=== PATIENT | female | born 1975 | race Caucasian/White ===

== ENCOUNTER 2023-07-09 13:43 | Outpatient (CLI) | payer OTHER, SELFPAY ==
--- OUTSIDE RECORDS SUMMARY | 2023-07-09 13:46 | XMS_ITS | Clinical Summary ---
Author Name Unknown Organization [facility] & [facility] Address [place], [place] [address] Care Team Providers Care Bridge Tender Name Role Phone Pcp, No Primary Care Provider Unavailabl e Allergies No known active allergies Medications Medication Sig Dispensed Refills Start Date End Date Status blood sugar diagnostic (GLUCOCARD VITAL SENSOR) stripIndications:Di abetes mellitus (HC) Dispense test strips covered by the patient insurance. Test 2 times per day. 100 Each 5 11/01/2012 Active omega-3 fatty acids-vitamin E (FISH OIL) 1,000 mg cap 2 caps twice daily 360 capsule 2 06/27/2013 Active gemfibrozil (LOPID) 600 mg tabletIndications:H ypertriglyceridemia TAKE 1 TABLET BY MOUTH DAILY 60 tablet 0 09/26/2013 Active ibuprofen (ADVIL; MOTRIN) 600 mg tabletIndications:B ack pain without radiation Take 1 tablet by mouth 4 times daily if needed. Maximum of 3200 mg in 24 hours. 60 tablet 1 03/31/2017 Active Active Problems Problem Noted Date Diagnosed Date Pancreatitis 10/31/2012 Hypertriglyceridemia 10/20/2012 Diabetes mellitus 10/20/2012 Myopia 06/01/2012 Resolved Problems Problem Noted Date Diagnosed Date Resolved Date Supervision of other normal 06/24/2007 06/01/2012 Immunizations Name Administration Dates Next Due Influenza A (H1N1), Inactivated 03/14/2009 Influenza A (H1N1), Inactivated (Age >=3 Years) 01/14/2010,01/14/2009 Influenza, IIV3 (Age >=3 years) 01/27/2013,07/10 Influenza, IIV4 (=>6mos) MDV 01/28/2016,02/02/20 14 Td (Age >=7 Years) 10/09/1998 Tdap 01/28/2016 Family History Medical History Relation Name Comments Diabetes Maternal Aunt several Diabetes Mother Diabetes Paternal Uncle several Cancer-breast No Family History Relation Name Status Comments Maternal Aunt Mother Paternal Uncle Social History Tobacco Use Types Packs/Day Years Used Date Smoking Tobacco: Never Smokeless Tobacco: Never Tobacco Cessation:Counseling Given: Yes Alcohol Use Standard Drinks/Week Comments No 0 (1 standard drink = 0.6 oz pur e alcohol) Sex and Gender Information Value Date Recorded Sex Assigned at Not on file Gender Identity Not on file Sexual Orientation Not on file Obstetrics History Para Term AB IAB SAB Ectopic Multiple Livin g Live Births 5 2 1 1 2 2 Date Outcome GA Total Labor Labor/2nd/3rd Weight Sex Delivery Anes PTL Carla A1 A5 Name Cl in SAB Para Para 03/16 40w 0d 22h 00m/ 3.97 kg (8 lb 12 oz) F Joselo Marysilvia Packer e 02/17 39w 0d 3h 00m/ 310 kg (683 lb 6.8 oz) M Vag Marysilvia garcia Last Filed Vital Signs Vital Sign Reading Time Taken Comments Blood Pressure 122/80 03/31/2017 11:03 AM PLANT GUARD Pulse 71 03/31/2017 11:03 AM PLANT GUARD Temperature 36.8 ??C (98.3 ??F) 03/31/2017 11:[address] Respiratory Rate - - Oxygen Saturation 100% 03/31/2017 11:03 AM PLANT GUARD Inhaled Oxygen Concentration - - Weight 70.6 kg (155 lb 9.6 oz) 03/31/2017 11:03 AM PLANT GUARD Height 157 cm (5' 1.81) 03/31/2017 11:03 AM PLANT GUARD Body Mass Index 28.63 03/31/2017 11:03 AM PLANT GUARD Plan of Treatment Health Maintenance Due Date Last Done Comments Hepatitis C screening for age 18-79 1992 Depression screening for age 12+ 10/27/2016 10/28/2015 BMI (ht and wt on same day) for age 18+ 03/31/2018 03/31/2017, 10/28/2015 Colonoscopy through age 75 07/20/2019 Lipids for age 45-75 09/08/2019 09/07/2014, 01/30/2014, 10/10/2013, Additional history exists Mammogram for age 45-75 11/08/2021 11/09/19 21, 03/31/2017, 01/10/2015 COVID-19 vaccine series (2022-24 season) 2022 Pap test for age 21-65 10/15/2023 , 10/14/2020, 03/31/2017, Additional history exists Influenza for age 9-49 12/05/2023 6, 02/01/2014, 01/27/2013, Additional history exists Tetanus booster 01/27/2026 01/28/2016, 10/09/1998 HIV for age 15-65 Completed 03/15/2007 Tdap Completed 01/28/2016 Pneumococcal series for age 6-64 Aged Out No longer eligible based on patient's age to complete this topic Procedures Procedure Name Priority Date/Time Associated Diagnosis Comments SCAN-MAMMOGRAPHY REPORT 11/08/2020 12:00 AM CDT ELECTRONIC ORGAN TECHNICIAN THIN PREP PAP DIAGNOSTIC IMAGED Routine 10/14/2020 11:45 AM CDT LIPID PANEL W REFLEX MEASURED LDL Routine 09/07/2014 7:24 AM CDT DM2 (diabetes mellitus, type 2) Elevated lipids ANTI HIV 1/2 Routine 03/15/2007 2:16 PM PLANT GUARD Supervision Of Other Normal from Last 3 Months or Most Recently Relevant to Health Maintenance Results * SCAN-MAMMOGRAPHY REPORT (11/08/2020 12:00 AM CDT) Anatomical Region Laterality Modality Other Scanner OTHER * ELECTRONIC ORGAN TECHNICIAN THIN PREP PAP DIAGNOSTIC IMAGED (10/14/2020 11:45 AM CDT) Case Report Gynecologic Cytology Report ? Case: [id number] ? Authorizing Provider: ??Stacy Cruz, TAMMY, ?? Collected: ? 10/14/2020 1145 ? CRIMINAL DEFENSE LAWYER ? Ordering Location: ? [facility] ?Received: ?10/16/2020 1129 ? First Screen: ?Lynn Gaston ? Specimen: ?ELECTRONIC ORGAN TECHNICIAN ThinPrep Vial Diagnostic, Cervical ? 10/27/2020 12:16 PM CDT [facility] INTERPRETATION/ RESULT NEGATIVE FOR INTRAEPITHELIAL LESION OR MALIGNANCY (NIL) (none) 10/27/2020 12:16 PM CDT [facility] IMEN ADEQUACY Satisfactory for evaluation Endocervical component present 10/27/2020 12:16 PM CDT [facility] HPV REQUEST HPV and PAP 10/27/2020 12:16 PM CDT [facility] Last Pap Result First Pap/Unknown 12:16 PM CDT [facility] Brashear Bx Done Today No 10/27/2020 12:16 PM CDT [facility] Additional Information 10/27/2020 12:16 PM CDT [facility] Comment: Interpreted at [facility] - [address], [place] [address] Automated Review Successful 10/27/2020 12:16 PM CDT [facility] Comment:Specimen processed s uccessfully by automated trashman device, ThinPrep Imaging System, [employer] ANCILLARY TESTING ELECTRONIC ORGAN TECHNICIAN HPV Ordered, Please see separate report 10/27/2020 12:16 PM CDT [facility] Note The pap test is a screening technique, not a diagnostic procedure. It is used primarily to screen for squamous cancers and precursor lesions. Published studies have shown that it is subject to both false negative and false positive results. The pap test should not be used as the sole means to diagnose or exclude pre-malignant and malignant lesions. 10/27/2020 12:16 PM CDT [facility] Other (Cervical) 10/14/2020 11:45 AM CDT 10/16/2020 11:29 AM CDT Stacy Cruz RN, CRIMINAL DEFENSE LAWYER PATHOLOGY/CYT OLOGY [facility] [address] [place] [address], * (ABNORMAL) LIPID PANEL W REFLEX MEASURED LDL (09/07/2014 7:24 AM CDT) CHOLESTEROL,TOTAL 222(H) 100 - 199 mg/dL 09/07/2014 8:11 AM CDT [facility] TRIGLYCERIDES 138 <150 mg/dL 09/07/2014 8:11 AM CDT [facility] HDL CHOLESTEROL 49 >40 mg/dL 5 8:11 AM CDT [facility] NON-HDL CHOLESTEROL 173(H) <145 mg/dl 09/07/2014 8:11 AM CDT [facility] CHOL/HDL RATIO 4.53(H) <4.50 09/07/2014 8:11 AM CDT [facility] LDL CHOLESTEROL 145(H) <=130 mg/dL 09/07/2014 8:11 AM CDT [facility] PATIENT STATUS FASTING 09/07/2014 8:11 AM CDT [facility] Blood specimen (specimen) BLOOD SPECIMEN / Unknown Venipuncture / Unknown 09/07/2014 7:24 AM CDT 09/07/2014 7:24 AM CDT Chito Gerber MD CHEMISTRY [facility] [address] [place] [address], * ANTI HIV 1/2 (03/15/2007 2:16 PM PLANT GUARD) ANTI HIV 1/2 Non-reacti ve [facility] Blood specimen (specimen) BLOOD SPECIMEN / Unknown 03/15/2007 2:16 PM PLANT GUARD 03/15/2007 2:05 PM PLANT GUARD Erica Monroe NP SEND OUTS [facility] INTERNAL ZIP [address] [place] [id number] from Last 3 Months or Most Recently Relevant to Health Maintenance Care Teams Bridge Tender Relationship Specialty Start Date End Date Pcp, No . PCP - General 08/26/20
--- NOTE | 2023-07-09 14:00 | MM_ITS ---
Patient: NICOLE FERRER Facility:?[facility] Patient ID:?[id number] Site Patient ID:?[id number]. Site :?[id number] Study:?XRay-Breast Bilateral 3D w/CAD-07/09/2023 3:02:28 PM Ordering Physician:Mariana Final Report: BILATERAL SCREENING MAMMOGRAM WITH COMPUTER-AIDED DETECTION AND TOMOSYNTHESIS TECHNIQUE: CC and MLO views were obtained. These mammographic images have been obtained using full-field digital technique. These mammographic images were interpreted with the benefit of computer-aided detection. Breast Tomosynthesis was used in this interpretation. COMPARISON FILM: 11/08/2020, 03/31/2017, 01/10/2015. FINDINGS: There are scattered areas of fibroglandular density. IMPRESSION: There is no radiographic evidence for malignancy. ASSESSMENT: BI-RADS Category 1: Negative RECOMMENDATION: Routine screening mammogram in 1 year. A lay language report of this examination will be provided to the patient. Chito Cristina M.D. Diagnostic Radiologist [employer] [facility] [email or web address] DSM/sp R& Transcribed: 12:04 p.m. SP/Dictated by: Chito Cristina MD @ 07/12/2023 9:54:00 AM Signed by:?Chito Cristina MD @07/12/2023 12:12:25 PM (Electronic Signature)
== END 2023-07-09 13:44 | disposition home or self-care (01) ==
LOC: MAMMO 13:44
PROVIDERS: Visit Provider Advanced Practice Midwife
DX: Z12.31 Encounter for screening mammogram for malignant neoplasm of breast (principal)
CPT/HCPCS: 77063; 77067; T1013

== ENCOUNTER 2023-07-10 12:27 | Outpatient (CLI) | payer OTHER, SELFPAY ==
--- OUTSIDE RECORDS SUMMARY | 2023-07-11 23:36 | XMS_ITS | Clinical Summary ---
Author Name Unknown Organization [facility] Address [place], [place] [address] Care Team Providers Care Track Patrol Name Role Phone Pcp, No Primary Care [...] Comments Blood Pressure 122/80 03/31/2017 11:03 AM PERSONNEL SCHEDULER Pulse 71 03/31/2017 11:03 AM PERSONNEL SCHEDULER Temperature 36.8 ??C (98.3 ??F) 03/31/2017 11:[address] Respiratory Rate - - Oxygen Saturation 100% 03/31/2017 11:03 AM PERSONNEL SCHEDULER Inhaled Oxygen Concentration - - Weight 70.6 kg (155 lb 9.6 oz) 03/31/2017 11:03 AM PERSONNEL SCHEDULER Height 157 cm (5' 1.81) 03/31/2017 11:03 AM PERSONNEL SCHEDULER Body Mass Index 28.63 03/31/2017 11:03 AM PERSONNEL SCHEDULER Plan of Treatment Health Maintenance Due Date [...] Comments SCAN-MAMMOGRAPHY REPORT 11/08/2020 12:00 AM CDT ELECTRICIAN JOURNEYMAN WIREMAN THIN PREP PAP DIAGNOSTIC IMAGED Routine 10/14/2020 11:45 AM CDT LIPID PANEL W REFLEX MEASURED LDL Routine 09/07/2014 7:24 AM CDT DM2 (diabetes mellitus, type 2) Elevated lipids ANTI HIV 1/2 Routine 03/15/2007 2:16 PM PERSONNEL SCHEDULER Supervision Of Other Normal from Last 3 Months or Most Recently Relevant to Health Maintenance Results * SCAN-MAMMOGRAPHY REPORT (11/08/2020 12:00 AM CDT) Anatomical Region Laterality Modality Other Scanner OTHER * ELECTRICIAN JOURNEYMAN WIREMAN THIN PREP PAP DIAGNOSTIC IMAGED (10/14/2020 11:45 AM CDT) Case Report Gynecologic Cytology Report ? Case: [id number] ? Authorizing Provider: ??Stacy Cruz, TAMMY, ?? Collected: ? 10/14/2020 1145 ? INSTRUMENT AND CONTROL SERVICE PERSON ? Ordering Location: ? [facility] ?Received: ?10/16/2020 1129 ? First Screen: ?Lynn Gaston ? Specimen: ?ELECTRICIAN JOURNEYMAN WIREMAN ThinPrep Vial Diagnostic, Cervical ? 10/27/2020 12:16 PM CDT [facility] INTERPRETATION/ RESULT NEGATIVE FOR INTRAEPITHELIAL LESION OR MALIGNANCY (NIL) (none) 10/27/2020 12:16 PM CDT [facility] IMEN ADEQUACY Satisfactory for evaluation Endocervical component present 10/27/2020 12:16 PM CDT [facility] HPV REQUEST HPV and PAP 10/27/2020 12:16 PM CDT [facility] Last Pap Result First Pap/Unknown 12:16 PM CDT [facility] Patterson Bx Done Today No 10/27/2020 12:16 PM CDT [facility] Additional Information 10/27/2020 12:16 PM CDT [facility] Comment: Interpreted at [facility] - [address], [place] [address] Automated Review Successful 10/27/2020 12:16 PM CDT [facility] Comment:Specimen processed s uccessfully by automated earth science teacher device, ThinPrep Imaging System, [employer] ANCILLARY TESTING ELECTRICIAN JOURNEYMAN WIREMAN HPV Ordered, Please see separate report 10/27/2020 12:16 PM CDT [facility] Note The pap test is a [...] and malignant lesions. 10/27/2020 12:16 PM CDT [facility] Other (Cervical) 10/14/2020 11:45 AM CDT 10/16/2020 11:29 AM CDT Stacy Cruz RN, INSTRUMENT AND CONTROL SERVICE PERSON PATHOLOGY/CYT OLOGY [facility] [address] [place] [address], * (ABNORMAL) LIPID PANEL W REFLEX MEASURED LDL (09/07/2014 7:24 AM CDT) CHOLESTEROL,TOTAL 222(H) 100 - 199 mg/dL 09/07/2014 8:11 AM CDT [facility] TRIGLYCERIDES 138 <150 mg/dL 09/07/2014 8:11 AM CDT [facility] HDL CHOLESTEROL 49 >40 mg/dL 5 8:11 AM CDT [facility] NON-HDL CHOLESTEROL 173(H) <145 mg/dl 09/07/2014 8:11 AM CDT [facility] CHOL/HDL RATIO 4.53(H) <4.50 09/07/2014 8:11 AM CDT [facility] LDL CHOLESTEROL 145(H) <=130 mg/dL 09/07/2014 8:11 AM CDT [facility] PATIENT STATUS FASTING 09/07/2014 8:11 AM CDT [facility] Blood specimen (specimen) BLOOD SPECIMEN / Unknown Venipuncture / Unknown 09/07/2014 7:24 AM CDT 09/07/2014 7:24 AM CDT Chito Gerber MD CHEMISTRY [facility] [address] [place] [address], * ANTI HIV 1/2 (03/15/2007 2:16 PM PERSONNEL SCHEDULER) ANTI HIV 1/2 Non-reacti ve [facility] Blood specimen (specimen) BLOOD SPECIMEN / Unknown 03/15/2007 2:16 PM PERSONNEL SCHEDULER 03/15/2007 2:05 PM PERSONNEL SCHEDULER Erica Monroe NP SEND OUTS [facility] INTERNAL ZIP [address] [place] [phone] from Last 3 Months or Most Recently Relevant to Health Maintenance Care Teams Track Patrol Relationship Specialty Start Date End Date Pcp, No . PCP - General 08/26/20
--- OUTSIDE RECORDS SUMMARY | 2023-07-11 23:37 | XMS_ITS | Data Portability ---
Author Name Unknown Address [address] [place] [id number] Phone [phone] Organization [facility] Mya nair [place] [facility] Address [address] [place] [address] [place] [address] Assessment Encounter Date Assessment Date Assessment LastModified by Organization Details LastModified Time 10/14/2020 10/14/2020 Follow-up with Dr. Bejarano as scheduled. [email or web address] Not available 10/14/2020 12:04:32 03/18/2023 03/18/2023 - refilled medications - discussed insulin, patient defers for now as she believes she can bring down A1C with diet - recheck 3-6 months, plan pending [id number] Not available 03/18/2023 16:29:17 Plan of Treatment Reminders Order Date Submit Date Provider Last Modified By Organization Details Last Modified Time Details Appointments None recorded. Lab CBC w/ auto diff [address]- Lab, [address] [place], [address], 16:30:42 HbA1c (hemoglobi n A1c), blood [address]- Lab, [address] [place], [address], 16:30:42 BMP, serum or plasma [address]- Lab, [address] [place], [address], 16:30:42 urinalysis , complete [address] [facility]- Lab, [address] [place], [address], 20:53:[address] [facility] Lab, [address] [place], [address], 16:29:54 CMP, serum or plasma [address] [facility], [address] [place], [address], 16:29:54 lipid panel, serum [address] [facility], [address] [place], [address], 16:29:54 microalbum in/creatin ine, mass ratio, urine [address] [facility], [address] [place], [address], 2 16:29:54 fecal occult blood, immunoassa y, stool [address] [facility] Lab, [address] [place], [address], 14:33:53 HbA1c (hemoglobi n A1c), blood [address] [facility], [address] [place], [address], 12:24:35 CBC w/ auto diff 2020 021 [facility], [address] [place] [address], [address], 20:41:48 CMP, serum or plasma 2020 021 [facility], [address] [place] [address], [phone], 2 20:42:14 lipid panel, blood 2020 021 meng [facility], [address] [place] [address], [address], 2 20:42:03 pap, LB + HR HPV - LMP 10/06/112020 021 [facility], [address] [place] [address], [address], 1 11:38:22 CBC w/ auto diff 2020 021 [facility] Not available 10:14:44 CMP, serum or plasma 2020 021 [facility] Not available 1 10:16:36 lipid panel, serum 2020 021 [facility] Not available 1 10:16:36 HbA1c (hemoglobi n A1c), blood 2020 021 [facility], [address] [place] [address], [address], 1 10:15:48 microalbum in/creatin ine, mass ratio, urine 2020 021 [facility], [address] [place] [address], [address], 1 10:17:19 Referral None recorded. Procedures None recorded. Surgeries None recorded. Imaging MAMMO, screening, bilateral 2020 021 [facility] Not available 1 14:55:08 Medication Orders metformin 500 mg tablet 2022 023 [facility], [address] [place], [address], 3 16:29:47 glipizide 10 mg tablet 2022 023 [facility], [address] [place], [address], 4 17:35:32 lisinopril 10 mg tablet 2022 023 [facility], [address] [place], [address], 3 16:29:03 rosuvastat in 5 mg tablet 2022 023 [facility], [address] [place], [address], 3 16:29:17 metformin 500 mg tablet 2021 022 [facility], [address] [place], [address], 2 12:42:48 gemfibrozi l 600 mg tablet [email or web address] [place] [address], [address] [place], [address], 3 14:56:20 metformin 500 mg tablet 2021 022 [facility], [address] [place], [address], 2 18:55:29 glipizide 10 mg tablet 2021 022 [facility], [address] [place], [address], 2 18:55:28 Fish Oil 340 mg-1,000 mg capsule 2021 022 [email or web address] [facility], [address] [place], [address], 2 19:24:46 glipizide 10 mg tablet 2020 021 [email or web address], [address], 3 11:23:01 metformin 500 mg tablet [address], [address], 1 18:41:21 gemfibrozi l 600 mg tablet [address], [address], 3 14:56:20 Fish Oil 340 mg-1,000 mg capsule 2020 [email or web address], [address], 2 19:24:46 Fish Oil 1,000 mg (120 mg-180 mg) capsule 2020 [email or web address], [address], 1 11:54:24 gemfibrozi l 600 mg tablet [email or web address], [address], 3 14:56:20 metformin 500 mg tablet [address], [address], 1 11:48:10 penicillin V potassium 500 mg tablet 2019 020 [email or web address] Not available 2 14:40:19 Patient TargetsNo targets recorded. Patient Instructions Encounter Date Encounter Id Patient Instructions Last Modified By Organization Details Last Modified Time 02/24/2022 [id number] watch for diarrhea, try to loose weight [email or web address] Not available 02/25/2022 10:04:56 check BS next visit, needs MARK ANTHONY, optometry report from Mark[facility], call about UA [email or web address] Not available 02/25/2022 10:07:19 10/21/2021 [id number] be sure to eat breakfast for energy during the day, [email or web address] Not available 10/22/2021 11:55:49 review lab, meds , start ASA next visit [email or web address] Not available 10/22/2021 12:02:41 02/06/2021 [id number] May take Ibuprofen or Tylenolprn. Use ice to arm prn. [email or web address] Not available 02/06/2021 18:19:12 01/21/2021 [id number] consider flu shot [email or web address] Not availab le 01/21/2021 20:37:55 10/14/2020 [id number] aprenda acerca d e las pruebas de detecci??n del c??ncer de seno - [learning about breast cancer screening] [email or web address] Not available 10/14/2020 11:50:17 08/20/2020 [id number] needs in person if not improved [email or web address] Not available 08/21/2020 11:31:46 10/12/2019 814 If anyone else i n family gets bad sore throat, belly pain, or fever, please call clinic to consider Rapid Strip testing for them. [email or web address] Not available 10/12/2019 19:07:49 Reason for Referral None Reported. Results Created Date Observation Date Name Description Value Unit Range Abnormal Flag LastModifiedBy Organization Detail LastModifiedTime 11/09/19 21 11/08/2020 lipid panel , serum ALT 18 Not Available Not Available 11/03 10:16:36 11/09/19 21 11/08/2020 lipid panel , serum creatinine 0.6 Not Available Not Available 0 11/12/2020 10:16:36 11/09/19 21 11/08/2020 lipid panel , serum HDL 53 Not Available Not Available 11/03 10:16:36 11/09/19 21 11/08/2020 lipid panel , serum LDL 80 Not Available Not Available 11/03 10:16:36 11/09/19 21 11/08/2020 lipid panel , serum total 233 Not Available Not Available 11/03 10:16:36 11/09/19 21 11/08/2020 lipid panel , serum trigliceride s 499 Not Available Not Available 10:16:36 11/09/19 21 11/08/2020 CMP, serum or plasm a ALT 18 Not Available Not Available 09/2020 17:08:35 11/09/19 21 11/08/2020 CMP, serum or plasm a creatinine 0.6 Not Available Not Available 0 11/08/2020 17:08:35 11/09/19 21 11/08/2020 CMP, serum or plasm a HDL 53 Not Available Not Available 09/2020 17:08:35 11/09/19 21 11/08/2020 CMP, serum or plasm a LDL 80 Not Available Not Available 09/2020 17:08:35 11/09/19 21 11/08/2020 CMP, serum or plasm a total 233 Not Available Not Available 09/2020 17:08:35 11/09/19 21 11/08/2020 CMP, serum or plasm a trigliceride s 499 Not Available Not Available 17:08:35 11/09/19 21 11/08/2020 micro album in/cr eatin ine, mass ratio , urine microalblumi n <1 Not Available [address], [address], 11/08/2020 17:12:40 11/09/19 21 11/08/2020 micro album in/cr eatin ine, mass ratio , urine ur creatinine 64 Not Available [address], [address], 11/08/2020 17:12:40 11/09/19 21 11/08/2020 HbA1c (hemo globi n A1c), blood A1C 10.2 Not Available [address], [address], 11/08/2020 17:01:38 11/09/19 21 11/08/2020 CBC w/ auto diff WBC 5.95 Not Available Not Available 09/2020 16:58:41 11/09/19 21 11/08/2020 CBC w/ auto diff platelet count 124 Not Available Not Available 16:58:41 11/09/19 21 11/08/2020 CBC w/ auto diff HGB 12.6 Not Available Not Available 09/2020 16:58:41 02/19/20 22 02/18/2022 HbA1c (hemo globi n A1c), blood hemoglobin A1C 10.57 high Not Available [facility] [address] [place], [address], 02/18/2022 21:18:19 02/19/20 22 02/18/2022 lipid panel , serum white blood count 5.57 Not Available [facility] [address] [place], [address], 02/24/2022 16:29:54 02/19/20 22 02/18/2022 lipid panel , serum hemoglobin 13.0 Not Available [facility] [address] [place], [address], 02/24/2022 16:29:54 02/19/20 22 02/18/2022 lipid panel , serum platelet count 102 low Not Available [facility] [address] [place], [address], 02/24/2022 16:29:54 02/19/20 22 02/18/2022 lipid panel , serum creatinine 0.5 Not Available [facility] [address] [place], [address], 02/24/2022 16:29:54 02/19/20 22 02/18/2022 lipid panel , serum ALT 25 Not Available [facility]- Lab [address] [place], [address], 02/24/2022 16:29:54 02/19/20 22 02/18/2022 lipid panel , serum hemoglobin A1C 10.57 high Not Available [facility] Lab [address] [place], [address], 02/24/2022 16:29:54 02/19/20 22 02/18/2022 lipid panel , serum micro ratio 10 Not Available [facility]- Lab [address] [place], [address], 02/24/2022 16:29:54 02/19/20 22 02/18/2022 lipid panel , serum cholesterol 234 high Not Available [facility] [address] [place], [address], 02/24/2022 16:29:54 02/19/20 22 02/18/2022 lipid panel , serum triglyceride s 435 high Not Available [facility] [address] [place], [address], 02/24/2022 16:29:54 02/19/20 22 02/18/2022 lipid panel , serum HDL 49 low Not Available [facility]- Lab [address] [place], [address], 02/24/2022 16:29:54 02/19/20 22 02/18/2022 lipid panel , serum LDL 98 Not Available [facility] [address] [place], [address], 02/24/2022 16:29:54 02/19/20 22 02/18/2022 micro album in/cr eatin ine, mass ratio , urine white blood count 5.57 Not Available [facility] [address] [place], [address], 02/24/2022 16:29:54 02/19/20 22 02/18/2022 micro album in/cr eatin ine, mass ratio , urine hemoglobin 13.0 Not Available [facility]- Lab [address] [place], [address], 02/24/2022 16:29:54 02/19/20 22 02/18/2022 micro album in/cr eatin ine, mass ratio , urine platelet count 102 low Not Available [facility] [address] [place], [address], 02/24/2022 16:29:54 02/19/20 22 02/18/2022 micro album in/cr eatin ine, mass ratio , urine creatinine 0.5 Not Available [facility] [address] [place], [address], 02/24/2022 16:29:54 02/19/20 22 02/18/2022 micro album in/cr eatin ine, mass ratio , urine ALT 25 Not Available [facility]- Lab [address] [place], [address], 02/24/2022 16:29:54 02/19/20 22 02/18/2022 micro album in/cr eatin ine, mass ratio , urine hemoglobin A1C 10.57 high Not Available [facility] [address] [place], [address], 02/24/2022 16:29:54 02/19/20 22 02/18/2022 micro album in/cr eatin ine, mass ratio , urine micro ratio 10 Not Available [facility] [address] [place], [address], 02/24/2022 16:29:54 02/19/20 22 02/18/2022 micro album in/cr eatin ine, mass ratio , urine cholesterol 234 high Not Available [facility] [address] [place], [address], 02/24/2022 16:29:54 02/19/20 22 02/18/2022 micro album in/cr eatin ine, mass ratio , urine triglyceride s 435 high Not Available [facility] [address] [place], [address], 02/24/2022 16:29:54 02/19/20 22 02/18/2022 micro album in/cr eatin ine, mass ratio , urine HDL 49 low Not Available [facility] [address] [place], [address], 02/24/2022 16:29:54 02/19/20 22 02/18/2022 micro album in/cr eatin ine, mass ratio , urine LDL 98 Not Available [facility] [address] [place], [address], 02/24/2022 16:29:54 02/19/20 22 02/18/2022 HbA1c (hemo globi n A1c), blood white blood count 5.57 Not Available [facility] [address] [place], [address], 02/24/2022 16:29:54 02/19/20 22 02/18/2022 HbA1c (hemo globi n A1c), blood hemoglobin 13.0 Not Available [facility] [address] [place], [address], 02/24/2022 16:29:54 02/19/20 22 02/18/2022 HbA1c (hemo globi n A1c), blood platelet count 102 low Not Available [facility] [address] [place], [address], 02/24/2022 16:29:54 02/19/20 22 02/18/2022 HbA1c (hemo globi n A1c), blood creatinine 0.5 Not Available [facility] [address] [place], [address], 02/24/2022 16:29:54 02/19/20 22 02/18/2022 HbA1c (hemo globi n A1c), blood ALT 25 Not Available [facility] [address] [place], [address], 02/24/2022 16:29:54 02/19/20 22 02/18/2022 HbA1c (hemo globi n A1c), blood hemoglobin A1C 10.57 high Not Available [facility] [address] [place], [address], 02/24/2022 16:29:54 02/19/20 22 02/18/2022 HbA1c (hemo globi n A1c), blood micro ratio 10 Not Available [facility]- Lab [address] [place], [address], 02/24/2022 16:29:54 02/19/20 22 02/18/2022 HbA1c (hemo globi n A1c), blood cholesterol 234 high Not Available [facility] [address] [place], [address], 02/24/2022 16:29:54 02/19/20 22 02/18/2022 HbA1c (hemo globi n A1c), blood triglyceride s 435 high Not Available [facility] [address] [place], [address], 02/24/2022 16:29:54 02/19/20 22 02/18/2022 HbA1c (hemo globi n A1c), blood HDL 49 low Not Available [facility] [address] [place], [address], 02/24/2022 16:29:54 02/19/20 22 02/18/2022 HbA1c (hemo globi n A1c), blood LDL 98 Not Available [facility] [address] [place], [address], 02/24/2022 16:29:54 02/19/20 22 02/18/2022 CMP, serum or plasm a white blood count 5.57 Not Available [facility] [address] [place], [address], 02/24/2022 16:29:54 02/19/20 22 02/18/2022 CMP, serum or plasm a hemoglobin 13.0 Not Available [facility] [address] [place], [address], 02/24/2022 16:29:54 02/19/2002/18/2022 CMP, serum or plasm a platelet count 102 low Not Available [facility] [address] [place], [address], 02/24/2022 16:29:54 02/19/2002/18/2022 CMP, serum or plasm a creatinine 0.5 Not Available [facility] [address] [place], [address], 02/24/2022 16:29:54 02/19/2002/18/2022 CMP, serum or plasm a ALT 25 Not Available [facility] [address] [place], [address], 02/24/2022 16:29:54 02/19/20 22 02/18/2022 CMP, serum or plasm a hemoglobin A1C 10.57 high Not Available [facility] [address] [place], [address], 02/24/2022 16:29:54 02/19/20 22 02/18/2022 CMP, serum or plasm a micro ratio 10 Not Available [facility] [address] [place], [address], 02/24/2022 16:29:54 02/19/2002/18/2022 CMP, serum or plasm a cholesterol 234 high Not Available [facility] [address] [place], [address], 02/24/2022 16:29:54 02/19/2002/18/2022 CMP, serum or plasm a triglyceride s 435 high Not Available [facility] [address] [place], [address], 02/24/2022 16:29:54 02/19/2002/18/2022 CMP, serum or plasm a HDL 49 low Not Available [facility] [address] [place], [address], 02/24/2022 16:29:54 02/19/20 22 02/18/2022 CMP, serum or plasm a LDL 98 Not Available [facility] [address] [place], [address], 02/24/2022 16:29:54 02/19/20 22 02/18/2022 CBC white blood count 5.57 Not Available [facility] [address] [place], [address], 02/24/2022 14:44:35 02/19/20 22 02/18/2022 CBC hemoglobin 13.0 Not Availa ble [facility] [address] [place], [address], 02/24/2022 14:44:35 02/19/20 22 02/18/2022 CBC platelet count 102 low Not Available [facility] [address] [place], [address], 02/24/2022 14:44:35 02/19/20 22 02/18/2022 CBC creatinine 0.5 Not Availa ble [facility] [address] [place], [address], 02/24/2022 14:44:35 02/19/20 22 02/18/2022 CBC ALT 25 Not Available [facility] [address] [place], [address], 02/24/2022 14:44:35 02/19/20 22 02/18/2022 CBC hemoglobin A1C 10.57 high Not Available [facility] [address] [place], [address], 02/24/2022 14:44:35 02/19/20 22 02/18/2022 CBC micro ratio 10 Not Avail able [facility] [address] [place], [address], 02/24/2022 14:44:35 02/19/20 22 02/18/2022 CBC cholesterol 234 high Not Avail able [facility] [address] [place], [address], 02/24/2022 14:44:35 02/19/20 22 02/18/2022 CBC triglyceride s 435 high Not Available [facility] [address] [place], [address], 02/24/2022 14:44:35 02/19/20 22 02/18/2022 CBC HDL 49 low Not Available [facility] [address] [place], [address], 02/24/2022 14:44:35 02/19/20 22 02/18/2022 CBC LDL 98 Not Available [facility] [address] [place], [address], 02/24/2022 14:44:35 02/11/20 21 11/08/2020 MAMMO , scree aleksandra, bilat eral No observ ation record ed. [facility] Radiology Department [address] [place], [address], 09/02/2021 20:55:36 Result Notes None recorded. Problems Name Status Onset Date Resolution Date Notes Provider Name and Address Organization Details Recorded Time Type 2 diabetes mellitus Active 10/15/19 21 Tommy Bejarano MD [address] [place], [address] , [facility] 10/21/2021 18:28:35 Hyperlipidemia Active 10/15/19 21 Tommy Bejarano MD [address] [facility] [place], [address] , [facility] 10/21/2021 18:28:40 History of pancreatitis Active 10/15/19 21 Stacy Cruz NP [address] [place], [address] , [facility] 10/14/2020 11:55:59 History of SARS-CoV-2 Active 10/15/19 Stacy Cruz NP [address] [place], [address] , [facility] 10/14/2020 11:57:26 Notes:Problem: Type 2 diabet es mellitus Status: Chronic Problem: Hyperlipidemia Status: Chronic Problem: Pancreatitis Status: Non-Chronic Problem Notes None recorded. Procedures Surgical History Date Name Laterality Status Provider Name and Address Organization Details Recorded Time 0 Date of Last Mammogram completed Stacy Cruz NP [address] [place], [address], [facility] 10/14/2020 11:55:12 6 Date of Last Pap Smear completed Stacy Cruz NP [address] [place], [address], [facility] 10/14/2020 11:55:02 Imaging Results Imaging Date Name Status LastModified by Organiz ation Details LastModified Time 11/08/2020 MAMMO, screening, bilateral completed [facility] Radiology Department [address] [place], [address], 09/02/2021 20:55:36 Procedure Notes None recorded. Medical Equipment None Reported. Allergies No known drug allergies Medications Name Sig Start Date Stop Date Status Note LastModified by Organization Details LastModified Time gnp eye drop dry eye INSTILL 1 DROP INTO AFFECTED EYE(S) TWICE A DAY NEEDED 10/21 completed Not Available Not Available Not Available penicillin V potassium 250 mg tablet Take 1 tablet every 6 hours by oral route. 10/19 completed Not Available Not Available Not Available cyclobenzap rine 10 mg tablet take 1 tablet by oral route 2 times every day 01/17 completed Not Available Not Available Not Available metformin 500 mg tablet TAKE TWO TABLETS BY MOUTH TWICE A DAY active Not Available Not Available No t Available azithromyci n 250 mg tablet TAKE 2 TABLETS BY MOUTH TODAY THEN 1 TABLET DAILY FOR 4 DAYS 03/18 completed Not Available Not Available Not Available Lidocaine Viscous 2 % mucosal solution MIX 5CCS OF LIDOCAINE WITH 10CCS OF WATER AND GARGLE EVERY THREE HOURS 09/11 completed Not Available Not Available Not Available glipizide 10 mg tablet TAKE ONE TABLET BY MOUTH EVERY DAY 2022 active Not Available Not Available Not Avai lable penicillin V potassium 500 mg tablet TAKE ONE-HALF TABLET (250MG) BY MOUTH EVERY SIX HOURS 10/19 completed Not Available Not Available Not Available meclizine 12.5 mg tablet take 2 tablet by oral route 3 times every day as needed 05/30 completed Not Available Not Available Not Available gemfibrozil 600 mg tablet TAKE ONE TABLET BY MOUTH ONCE DAILY 03/18 completed Not Available Not Available Not Available lisinopril 10 mg tablet TAKE ONE TABLET BY MOUTH EVERY DAY active Not Available Not Available No t Available ergocalcife rol (vitamin D2) 1,250 mcg (50,000 unit) capsule take 1 capsule by oral route every week for 8 weeks 10/28 completed Not Available Not Available Not Available ibuprofen 600 mg tablet take 1 tablet by oral route 3 times every day as needed 10/14 completed Not Available Not Available Not Available rosuvastati n 5 mg tablet TAKE ONE TABLET BY MOUTH EVERY DAY active Not Available Not Available No t Available Fish Oil 340 mg-1,000 mg capsule TAKE 1 OR 2 CAPSULES TWICE DAILY. 02/24 completed Not Available Not Available Not Available Artificial Tears (glycerin-p eg) 1 %-0.3 % eye drops Apply 1 drop twice a day by ophthalmi c route as needed. 10/21 completed Not Available Not Available Not Available Gildess FE 1.5/30 (28) 1.5 mg-30 mcg (21)/75 mg (7) tablet take 1 tablet by oral route every day 01/17 completed Not Available Not Available Not Available Vitamin D3 125 mcg (5,000 unit) tablet take 1 by Oral route every day 05/30 completed Not Available Not Available Not Available Fish Oil 1,000 mg (120 mg-180 mg) capsule Take 1 or 2 capsules twice daily. 10/14 completed Not Available Not Available Not Available omega-3 300 mg-dha 120 mg-epa 180 mg-fish oil 1,000 mg capsule TAKE 1 OR 2 CAPSULES TWICE DAILY. active Not Available Not Available No t Available Vitals Date Recorded Body weight Systolic blood pressure Diastolic blood pressure Provider Name and Address Organization Details Last Updated DateTime 09/10/2020 49129.13 g 126 mm[Hg] 75 mm[Hg] Tommy Bejarano MD [address] [place], [address], [facility] [employer] 09/11/2020 11:40:06 Date Recorded Body height Body mass index (BMI) Body weight Heart rate Body temperature Systolic blood pressure Diastolic blood pressure Provider Name and Address Organization Details Last Updated DateTime 1 152.4 cm 30.3 kg/m2 75319.8 2 g 73 /min 98.7 [degF] 126 mm[Hg] 78 mm[Hg] Stacy Cruz NP [address] [place], [address], [facility] [employer] 1 11:54:14 Date Recorded Body height Body mass index (BMI) Body weight Systolic blood pressure Diastolic blood pressure Provider Name and Address Organization Details Last Updated DateTime 01/21/2021 160.02 cm 28 kg/m2 21426.59 g 125 mm[Hg] 79 mm[Hg] Tommy Bejarano MD [address] [place], [address], [facility] [employer] 1 19:56:42 Date Recorded Body height Body mass index (BMI) Body weight Heart rate Systolic blood pressure Diastolic blood pressure Provider Name and Address Organization Details Last Updated DateTime 2 157.48 cm 28.3 kg/m2 65221.8 2 g 79 /min 141 mm[Hg] 84 mm[Hg] [place] [facility] [employer] 2 18:29:36 Date Recorded Body height Body mass index (BMI) Body weight Systolic blood pressure Diastolic blood pressure Provider Name and Address Organization Details Last Updated DateTime 02/24/2022 157.48 cm 28.4 kg/m2 08715.25 g 137 mm[Hg] 79 mm[Hg] Tommy Bejarano MD [address] [place], [address] [place] [address] [employer] 2 09:59:01 Date Recorded Body weight Body mass index (BMI) Body height Respiratory rate Oxygen saturation Oxygen saturation in Arterial blood by Pulse oximetry Heart rate Body temperature Systolic blood pressure Diastolic blood pressure Provider Name and Address Organization Details Last Updated DateTime 3 97821.5 7 g 28.6 kg/m2 157.48 cm 22 /min 98 % 98 % 77 /min 97.2 [degF] 153 mm[Hg] 78 mm[Hg] Sola omer [facility] [employer] 3 14:33:56 Date Recorded Systolic blood pressure Diastolic blood pressure Provider Name and Address Organization Details Last Updated DateTime 05/30/2015 121 mm[Hg] 77 mm[Hg] Not Available [facility] 0 10/23/2019 12:57:19 Date Recorded Systolic blood pressure Diastolic blood pressure Provider Name and Address Organization Details Last Updated DateTime 12/04/2016 121 mm[Hg] 79 mm[Hg] Not Available [employer] 0 10/23/2019 12:57:19 Date Recorded Systolic blood pressure Diastolic blood pressure Provider Name and Address Organization Details Last Updated DateTime 02/24/2016 124 mm[Hg] 72 mm[Hg] Not Available [employer] 0 10/23/2019 12:57:19 Date Recorded Systolic blood pressure Diastolic blood pressure Provider Name and Address Organization Details Last Updated DateTime 10/28/2017 131 mm[Hg] 77 mm[Hg] Not Available [employer] 0 10/23/2019 12:57:19 Date Recorded Systolic blood pressure Diastolic blood pressure Provider Name and Address Organization Details Last Updated DateTime 12/06/2018 131 mm[Hg] 82 mm[Hg] Not Available [employer] 0 10/23/2019 12:57:19 Date Recorded Systolic blood pressure Diastolic blood pressure Provider Name and Address Organization Details Last Updated DateTime 07/30/2016 132 mm[Hg] 81 mm[Hg] Not Available [employer] 0 10/23/2019 12:57:19 Date Recorded Systolic blood pressure Diastolic blood pressure Provider Name and Address Organization Details Last Updated DateTime 05/19/2018 145 mm[Hg] 81 mm[Hg] Not Available [employer] 0 10/23/2019 12:57:19 Date Recorded Systolic blood pressure Diastolic blood pressure Provider Name and Address Organization Details Last Updated DateTime 10/26/2013 145 mm[Hg] 88 mm[Hg] Not Available [facility] 0 10/23/2019 12:57:19 Date Recorded Systolic blood pressure Diastolic blood pressure Provider Name and Address Organization Details Last Updated DateTime 01/17/2014 145 mm[Hg] 88 mm[Hg] Not Available [facility] 0 10/23/2019 12:57:19 Date Recorded Systolic blood pressure Diastolic blood pressure Provider Name and Address Organization Details Last Updated DateTime 06/08/2013 148 mm[Hg] 81 mm[Hg] Not Available [facility] 0 10/23/2019 12:57:19 Date Recorded Systolic blood pressure Diastolic blood pressure Provider Name and Address Organization Details Last Updated DateTime 09/01/2018 149 mm[Hg] 81 mm[Hg] Not Available [facility] 0 10/23/2019 12:57:19 Social History Question Answer Notes LastModified by Organizat ion Details LastModified Time Tobacco Smoking Status Never Smoker Stacy Cruz, KAI [address] [place], [address], [facility] [employer] 10/14/2020 11:54:52 Do You Feel Safe At Home? Yes [email or web address] Information not available 10/22/2021 Sex: Female Functional Status None recorded. Mental Status None recorded. Family History Relationship Description Onset Age of this Age Resolved Age Notes Mother Diabetes mellitus Mother Myocardial infarction Notes:father of rupture d appendix, one sib with diabetes Medical History No medical history recorded. Gynecological History Statement/Question Response Menses Monthly Y Abnormal Pap N Date of Last Pap Smear 04/05/2015 Date of Last Mammogram 04/05/2019 Date of LMP 10/06/2011 Sexually Active? N Obstetrics History GPAL:G 4 P 3 0 1 3 Type Value Full Term 3 Spontaneous 1 Living 3 Total 4 Immunizations Vaccine Type Date Status Provider Name and Address Organization Details Recorded Time COVID-19, mRNA, LNP-S, PF, 30 mcg/0.3 mL dose 02/06/2021 completed BRENDA TUCKER [address] [place], [address], [facility] [employer] 02/06/2021 18:19:12 Past Encounters Encounter ID Performer Location Encounter Start Date Encounter Closed Date Diagnosis/Indication Diagnosis SNOMED-CT Code [id number] Toi Ferguson MD [facility] [address] [place] [id number] 10/12/2019 18:13:34 10/12/2019 19:01:08 Streptococcal sore throat [id number] Tommy Bejarano MD [facility] [address] [place] [id number] 08/20/2020 18:33:15 08/21/2020 12:22:16 Pain in throat [id number] Tommy Bejarano MD [facility] [address] [place] [phone] 09/10/2020 18:34:56 09/11/2020 12:01:33 Non-alcoholic fatty liver 272466595 Pain of le ft ankle joint [id number] Stacy Cruz NP [facility] [address] [place] [address] 10/14/2020 11:11:26 10/14/2020 12:59:03 Screening for malignant neoplasm of breast 862350482 Screening for malignant neoplasm of cervix 066584685 [id number] Tommy Bejarano MD [facility] [address] [place] [id number] 11/19/2020 18:18:46 11/19/2020 19:38:09 Type 2 diabetes mellitus without complication [id number] [id number] Tommy Bejarano MD [facility] [address] [place] [phone] 01/21/2021 18:59:57 01/21/2021 19:38:48 Type 2 diabetes mellitus without complication [id number] BRENDA TUCKER [facility] [address] [place] [id number] 02/06/2021 18:05:11 04/23/2021 03:52:43 Administration of SARS-CoV-2 mRNA vaccine [id number] Tommy Bejarano MD [facility] [address] [place] [phone] 10/21/2021 18:21:57 10/21/2021 19:02:56 Type 2 diabetes mellitus without complication 735831414 Mixed hyperlipidemia 267 379630 Essential hypertension 85607756 [id number] Tommy Bejarano MD [facility] [address] [place] [id number] 02/24/2022 19:02:34 02/24/2022 20:29:02 Type 2 diabetes mellitus without complication 904844052 Mixed hyperlipidemia 267 584058 Essential hypertension 08434856 [id number] Renate Sherman MD [facility] [address] [place] [address] 03/18/2023 14:29:46 03/18/2023 15:11:47 Hyperlipidemia 10587209 Essential hypertension 15015286 Type II di abetes mellitus uncontrolled 210713641 Renewal of prescription 702030835 Type 2 winston betes mellitus without complication 964596816 Isolated thrombocytopenia 245069827 Health Concerns Section Related Observation LastModified by Organization Detai ls LastModified Time None Recorded Concern Status LastModified by Organization Details LastModified Time None Recorded Advance Directives Directive None Recorded Payers Encounter Date Sequence Insurance Name Policy Number Policy Parks Covered Member ID Parks Member ID Guarantor Name 03/18/2023 SLIDING FEE SCHEDULE - DISCOUNT Rhea Calabrese 02/24/2022 SLIDING FEE SCHEDULE - DISCOUNT Rhea Calabrese 10/21/2021 SLIDING FEE SCHEDULE - DISCOUNT Rhea Calabrese 02/06/2021 SLIDING FEE SCHEDULE - DISCOUNT Rhea Calabrese 01/21/2021 SLIDING FEE SCHEDULE - DISCOUNT Rhea Calabrese 11/19/2020 SLIDING FEE SCHEDULE - DISCOUNT Rhea Calabrese 10/14/2020 MARK ANTHONY SCREENING PROGRAM [facility]hea Calabrese [id number] Rhea Calabrese 09/10/2020 SLIDING FEE SCHEDULE - DISCOUNT Rhea Calabrese 08/20/2020 SLIDING FEE SCHEDULE - DISCOUNT Rhea Calabrese 10/12/2019 SLIDING FEE SCHEDULE - DISCOUNT Rhea Calabrese Notes Date Note Type Note Provider Name and Address Organization Details Recorded Time 10/12/2019 text/html HPI Notes: She w as dx'd with PCR-positive COVID19 about 17 days ago, got over it easily in just 3-4 days, never had any fever or severe sxs, and was subsequently well for about 10 days. Then, just 4 days ago, moderate ST started, including red pharynx with white spots, she says. She started PCN on her own (from [place]) but only has enough for 2 days. No rapid strep test done. Rest of family is well. Her BG's have been 120's fasting, and she is taking her usual meds. LMP 2 weeks ago, no allergy known to PCN. Toi Ferguson MD [address] [place], [address], [facility] [employer] 10/13/2019 08:33:19 08/20/2020 text/html HPI Notes: no fever, has taken PCN, recent menses, job in [place] Tommy Bejarano MD [address] [place], [address], 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 Last pap done 2015; normal. Last mammogram ~2019; also normal. No personal or family history of breast or cervical cancer. Not sexually active. is in [place]. Menses are regular, not difficult. No abnormal vaginal discharge, no spotting. No breast concerns. Had COVID 2019. Mild symptoms. Now she and her 3 children are vaccinated. Followed by Dr. Bejarano now for T2DM, dyslipidemia. Overdue for labs (no labs since 07/2019). Denies any new concerns today. Stacy Cruz NP [address] [place], [address], [employer] 10/14/2020 12:17:39 11/19/2020 text/html HPI Notes: Diabe ivelisse F/U Reported by patient. Review finger sticks: fastin; pre dinner: Labs: last A1C result: 10 Context: taking aspirin daily; not missing doses of medications; side effects from medications; concerns? three meals a day? job? optometry? Notes: has had PAP, job in [place] Tommy Bejarano MD [address] [facility] [place], [address], [facility] [employer] 11/19/2020 18:43:41 01/21/2021 text/html HPI Notes: activ e, careful with meals, didn't bring meds, had MARK ANTHONY Tommy Bejarano MD [address] [facility] [place], [address], [facility] 01/21/2021 20:38:07 02/06/2021 text/html HPI Notes: Requesting Covid 19 vaccine booster, previously Pfizer x 2 MARILU ALANIZ, PHARMACIST INTERN [address] [facility] [place], [address], [facility] 02/06/2021 18:19:17 10/21/2021 text/html HPI Notes: last optometry about a year ago, wears glasses, can't find report, one remote episode of pancreatitis with out recurrence (can't find records on this) Tommy Bejarano MD [address] [place], [address], [facility] 10/22/2021 12:11:07 03/18/2023 text/html HPI Notes: Rhea is in for DM2 f/u We reviewed recent labs: - A1C of 10.3, taking medications as prescribed, admits diet could be better - elevated triglycerides and total cholesterol (currently on Gemfibrozil) - platelets of 112 (have been as low as 102 on chart review, asymptomatic) Had a vesicular rash on her R neck, upper arm, and forearm in December. It itched and burned for 3 days, then improved. She showed me photos on her phone, c/w shingles. Due for medication refills today. No concerns, generally feeling well. Saw dentist today before this appointment. Renate Sherman MD [address] [facility] [place], [address], [facility] 03/18/2023 16:31:22 OBGyn Episode No OBEpisode recorded.
== END 2023-07-10 12:28 | disposition home or self-care (01) ==
LOC: NFLDREF 07-11 23:34
PROVIDERS: PCP Nurse Practitioner Family; Visit Provider Nurse Practitioner Family
DX: N30.00 Acute cystitis without hematuria (principal); B96.1 Klebsiella pneumoniae [K. pneumoniae] as the cause of diseases classified elsewhere
CPT/HCPCS: 87086; 87186

== ENCOUNTER 2024-11-24 15:18 | Outpatient (REF) | payer OTHER, SELFPAY ==
--- NOTE | 2024-11-24 15:20 | CRLHL7_ITS ---
For Patients: As a result of the Century Cures Act, medical imaging exams and procedure reports are released immediately into your electronic medical record. You may view this report before your referring provider. If you have questions, please contact your health care provider. INDICATION: BILATERAL SCREENING MAMMOGRAM, ASYMPTOMATIC 49 Y/O FEMALE COMPARISON: 07/09/2023, 11/08/2020, 03/31/2017 TECHNIQUE: Digital mammogram in CC and MLO projections including computer-aided detection (CAD) and tomosynthesis. BREAST COMPOSITION: There are scattered areas of fibroglandular density. FINDINGS: No suspicious findings. ASSESSMENT: BI-RADS 1 Negative RECOMMENDATION: Annual screening mammogram. A lay language report of this examination will be provided to the patient. Dictated by: Chito Cristina MD @ 11/28/2024 10:23:39 (Electronically Signed)
--- OUTSIDE RECORDS SUMMARY | 2024-11-25 00:06 | XMS_ITS | Clinical Summary ---
Author Organization [employer] [facility] Address [address] [place] [address] Care Team Providers Care Telecom Analyst Name Role Phone Pcp, No Primary Care Provider Unavailabl e Allergies No known active allergies Medications blood sugar diagnostic (GLUCOCARD VITAL SENSOR) stripIndication s:Diabetes mellitus (HC) Dispense test strips covered by the patient insurance. Test 2 times per day. 100 Each 5 11/01/2012 Active omega-3 fatty acids-vitamin E (FISH OIL) 1,000 mg cap 2 caps twice daily 360 capsule 2 06/27/2013 Active gemfibrozil (LOPID) 600 mg tabletIndicatio ns:Hypertriglyc eridemia TAKE 1 TABLET BY MOUTH DAILY 60 tablet 0 09/26/2013 Active ibuprofen (ADVIL; MOTRIN) 600 mg tabletIndicatio ns:Back pain without radiation Take 1 tablet by mouth 4 times daily if needed. Maximum of 3200 mg in 24 hours. 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 Gender Identity Not on file Sexual Orientation Not on file Occupation Industry Job Start Date Job End Date Homemaker Not on file Not on file Not on file Obstetrics History Para Term AB IAB SAB Ectopic Multiple Livin g Live Births 5 2 1 1 2 2 Date Outcome GA Total Labor Labor/2nd/3rd Weight Sex Type Anes PTL Carla A1 A5 Name Clin SAB Para Para 03/16 40w 0d 22h 00m/ 3.97 kg (8 lb 12 oz) F Vag Living Kitty 02/17 39w 0d 3h 00m/ 310 kg (683 lb 6.8 oz) M Vag Living [facility] Last Filed Vital Signs Vital Sign Reading Time Taken Comments Blood Pressure 122/80 03/31/2017 11:03 AM ENGINEERING INSTRUCTOR Pulse 71 03/31/2017 11:03 AM ENGINEERING INSTRUCTOR Temperature 36.8 C (98.3 F) 03/31/2017 11:03 AM ENGINEERING INSTRUCTOR Respiratory Rate - - Oxygen Saturation 100% 03/31/2017 11:03 AM ENGINEERING INSTRUCTOR Inhaled Oxygen Concentration - - Weight 70.6 kg (155 lb 9.6 oz) 03/31/2017 11:03 AM ENGINEERING INSTRUCTOR Height 157 cm (5' 1.81) 03/31/2017 11:03 AM ENGINEERING INSTRUCTOR Body Mass Index 28.63 03/31/2017 11:03 AM ENGINEERING INSTRUCTOR Plan of Treatment Health Maintenance Due Date Last Done Comments Hepatitis C screening for ag e 18-79 1992 Hepatitis B series for 19+ ( 1 of 3 - 19+ 3-dose series) 1993 Depression screening for age 12+ 10/27/2016 10/28/19 16 BMI (ht and wt on same day) for age 18+ 03/31/2018 03/31/2017, 10/28/2015 Colonoscopy through age 75 07/20/2019 Lipids for age 45-75 09/08/2019 09/07/2014, 01/30/2014, 10/10/2013, Additional history exists Mammogram for age 45-75 11/08/2021 11/09/19 21, 03/31/2017, 01/10/2015 COVID-19 vaccine series (2 - season) 2023 02/06/2021 Pneumococcal series for age 50+ (1 of 1 - PCV) 2024 Zoster (shingles) series for age 50+ (1 of 2) 2024 Influenza Vaccine (#1) 2024 6, 02/01/2014, 01/27/2013, Additional history exists Tetanus booster 01/27/2026 01/28/2016, 10/09/1998 Pap test for age 21-65 07/08/2026 4, 07/09/2023, 10/14/2020, Additional history exists HIV for age 15-65 Completed 03/15/2007 Procedures Procedure Name Priority Date/Time Associated Diagnosis Comments CURTAIN CUTTER THIN PREP PAP SCREEN IMAGED Routine 07/09/2023 2:45 PM CDT SCAN-MAMMOGRAPHY REPORT 11/08/2020 12:00 AM CDT LIPID PANEL W REFLEX MEASURED LDL Routine 09/07/2014 7:24 AM CDT DM2 (diabetes mellitus, type 2) (HC) Elevated lipids ANTI HIV 1/2 Routine 03/15/2007 2:16 PM ENGINEERING INSTRUCTOR Supervision Of Other Normal (Hc) from Last 3 Months or Most Recently Relevant to Health Maintenance Results * CURTAIN CUTTER THIN PREP PAP SCREEN IMAGED (07/09/2023 2:45 PM CDT) Case Report Gynecologic Cytology Report Case: [id number] Authorizing Provider: Anel Houser CNM Collected: 07/09/2023 1445 Ordering Location: [facility] Received: 07/13/2023 0900 First Screen: Lynn Gaston Specimen: CURTAIN CUTTER ThinPrep Vial Screening, Cervical 07/23/2023 1:31 PM CDT [facility] INTERPRETATION/ RESULT NEGATIVE FOR INTRAEPITHELIAL LESION OR MALIGNANCY (NIL) (none) 07/23/2023 1:31 PM CDT [facility] at 1331 CDT SPECIMEN ADEQUACY Satisfactory for evaluation Endocervical component present 07/23/2023 1:31 PM CDT [facility] HPV REQUEST HPV and PAP 07/23/2023 1:31 PM CDT [facility] Date of LMP 07/23/2023 1:31 PM CDT [facility] Comment:2 years ago Last Pap Date 07/23/2023 1:31 PM CDT [facility] Comment:unknown Last Pap Result First Pap/Unknown 1:31 PM CDT [facility] Abnormal Pap or Parker Bx in last 5 years No 07/23/2023 1:31 PM CDT [facility] Menstrual Status Perimenopausal 07/23/2023 1:31 PM CDT [facility] Parker Bx Done Today No 07/23/2023 1:31 PM CDT [facility] Additional Information 07/23/2023 1:31 PM CDT [facility] Comment: Interpreted at [facility] Central Laboratory - [address], [place] [address] Automated Review Successful 07/23/2023 1:31 PM CDT [facility] Comment:Specimen processed s uccessfully by automated machine hostler device, ThinPrep Imaging System, [employer] ANCILLARY TESTING CURTAIN CUTTER HPV Ordered, Please see separate report 07/23/2023 1:31 PM CDT [facility] Note The pap test is a screening technique, not a diagnostic procedure. It is used primarily to screen for squamous cancers and precursor lesions. Published studies have shown that it is subject to both false negative and false positive results. The pap test should not be used as the sole means to diagnose or exclude pre-malignant and malignant lesions. 07/23/2023 1:31 PM CDT [facility] Other (Cervical) 07/09/2023 2:45 PM CDT 07/13/2023 9:00 AM CDT us Anel Houser CNM PATHOLOGY/CYTOLOGY Final R esult [facility] [address] [place] [address], [place] * SCAN-MAMMOGRAPHY REPORT (11/08/2020 12:00 AM CDT) Anatomical Region Laterality Modality Other us Scanner OTHER Final Result * (ABNORMAL) LIPID PANEL W REFLEX MEASURED LDL (09/07/2014 7:24 AM CDT) CHOLESTEROL,TOTAL 222(H) 100 - 199 mg/dL 09/07/2014 8:11 AM CDT [facility] TRIGLYCERIDES 138 <150 mg/dL 09/07/2014 8:11 AM CDT [facility] HDL CHOLESTEROL 49 >40 mg/dL 5 8:11 AM CDT [facility] NON-HDL CHOLESTEROL 173(H) <145 mg/dl 09/07/2014 8:11 AM CDT [facility] CHOL/HDL RATIO 4.53(H) <4.50 09/07/2014 8:11 AM CDT [facility] LDL CHOLESTEROL 145(H) <=130 mg/dL 09/07/2014 8:11 AM CDT [facility] PATIENT STATUS FASTING 09/07/2014 8:11 AM CDT [facility] Blood specimen (specimen) BLOOD SPECIMEN / Unknown Venipuncture / Unknown 09/07/2014 7:24 AM CDT 09/07/2014 7:24 AM CDT us Chito Gerber MD CHEMISTRY Final Resu lt [facility] [address] [place] [address], * ANTI HIV 1/2 (03/15/2007 2:16 PM ENGINEERING INSTRUCTOR) ANTI HIV 1/2 Non-reacti ve [facility] Blood specimen (specimen) BLOOD SPECIMEN / Unknown 03/15/2007 2:16 PM ENGINEERING INSTRUCTOR 03/15/2007 2:05 PM ENGINEERING INSTRUCTOR us Erica Monroe NP SEND OUTS F inal Result [facility] INTERNAL ZIP [id number] [address] from Last 3 Months or Most Recently Relevant to Health Maintenance Care Teams Telecom Analyst Relationship Specialty Start Date End Date Pcp, No . PCP - General 08/26/20
== END 2024-11-24 15:19 | disposition home or self-care (01) ==
LOC: MAMMO 15:18
PROVIDERS: Visit Provider Registered Nurse
DX: Z12.31 Encounter for screening mammogram for malignant neoplasm of breast (principal)
CPT/HCPCS: 77063; 77067; T1013